=== PATIENT | female | born 1945 | race Caucasian/White ===

== ENCOUNTER 2023-06-04 07:11 | Day surgery (SDC) | payer BC, MEDICARE ==
[2023-06-04] MEDS ORDERED: Lactated Ringers 1,000 ML IV SCH (07:45)
[2023-06-04] MEDS ORDERED: propofoL 50 ML ONE (07:48)
== END 2023-06-04 10:05 | disposition home or self-care (01) ==
LOC: MW.SDS 07:11
PROVIDERS: ATTEND Surgery
DX: Z12.11 Encounter for screening for malignant neoplasm of colon (principal); K57.30 Diverticulosis of large intestine without perforation or abscess without bleeding; E78.00 Pure hypercholesterolemia, unspecified; Z90.49 Acquired absence of other specified parts of digestive tract; Z91.048 Other nonmedicinal substance allergy status; Z79.899 Other long term (current) drug therapy
CPT/HCPCS: 45378; J2704; J7120